=== PATIENT | male | born 2000 | race Hispanic/Latino ===

== ENCOUNTER 2020-08-31 13:12 | Outpatient (CLI) | payer OTHER ==
--- NOTE | 2020-08-31 14:51 | XRay Report ---
LUMBAR SPINE 5 VIEWS INDICATION / CLINICAL INFORMATION: AP/LAT. COMPARISON: None available. FINDINGS: No significant skeletal abnormality. Alignment is normal. Signer Name: Christopher Vazquez MD FACJuan Carlos Signed: 08/31/2020 2:46 PM Workstation Name: [id number]
== END 2020-08-31 13:13 | disposition home or self-care (01) ==
LOC: XRAY 13:12
PROVIDERS: ATTEND Internal Medicine
DX: M54.5 Low back pain (principal)
CPT/HCPCS: 72110